=== PATIENT | female | born 1975 ===

== ENCOUNTER 2018-07-24 12:37 | Emergency (ER) | payer MEDICAID, OTHER ==
[2018-07-24 12:37] VITALS: BMI 29.2
[2018-07-24 12:53] VITALS: PULSE 87; RESP 18; TEMP 98.7; O2SAT 99
[2018-07-24 12:57] VITALS: BP 110/69
--- NOTE | 2018-07-24 15:09 | RAD ---
Date of service: 07/24/2018 HISTORY: cough COMPARISON: No prior. TECHNIQUE: Chest PA and lateral FINDINGS: LUNGS: No active pulmonary disease. PLEURA: No significant pleural effusion identified. No pneumothorax apparent. CARDIOVASCULAR: No aortic atherosclerotic calcification present OSSEOUS STRUCTURES: No significant abnormalities. VISUALIZED UPPER ABDOMEN: Normal. OTHER FINDINGS: None. IMPRESSION: No active disease.
--- NOTE | 2018-07-24 15:10 | C.PDOC ---
History Of Present Illness 42 year old female presents to the ER after having an episode of coughing with post tussive vomiting. Patient states they have been doing renovations in her apartment which has caused a bad smell to come from her bathroom and she believes it is due to mold. Patient reports she woke up with the symptoms due to the smell. Denies fever or chills. Time Seen by Provider: 07/24/18 12:53 Chief Complaint (Nursing): Cough, Cold, Congestion History Per: Patient History/Exam Limitations: no limitations Onset/Duration Of Symptoms: Hrs Current Symptoms Are (Timing): Gone Recent travel outside of the [place]: No Past Medical History Reviewed: Historical Data, Nursing Documentation, Vital Signs Vital Signs: Last Vital Signs Temp 98.7 F 07/24/18 12:42 Pulse 87 07/24/18 12:42 Resp 18 07/24/18 12:42 BP 110/69 07/24/18 12:56 Pulse Ox 99 07/24/18 12:42 Family History: States: Unknown Family Hx - Social History Hx Tobacco Use: Yes Hx Alcohol Use: Yes Hx Substance Use: No - Immunization History Hx Tetanus Toxoid Vaccination: No Hx Influenza Vaccination: No Hx Pneumococcal Vaccination: No Review Of Systems Constitutional: Negative for: Fever, Chills ENT: Negative for: Throat Pain Respiratory: Positive for: Cough Gastrointestinal: Positive for: Vomiting (Post tussive) Physical Exam - Physical Exam Appears: Non-toxic, No Acute Distress, Other (Speaking in complete sentences) Skin: Normal Color, Warm, Dry Head: Atraumatic, Normacephalic Eye(s): bilateral: Normal Inspection Ear(s): Bilateral: Normal Nose: Normal Oral Mucosa: Moist Throat: Normal, No Erythema, No Exudate Neck: Normal, Supple Chest: Symmetrical, No Tenderness Cardiovascular: Rhythm Regular Respiratory: Normal Breath Sounds, No Rales, No Rhonchi, No Wheezing Gastrointestinal/Abdominal: Soft, No Tenderness Neurological/Psych: Oriented x3, Normal Speech ED Course And Treatment O2 Sat by Pulse Oximetry: 99 (Room air) Pulse Ox Interpretation: Normal - Other Rad CXR X-Ray: Viewed By Me, Read By Radiologist Interpretation: HISTORY: cough. COMPARISON: No prior. TECHNIQUE: Chest PA and lateral. FINDINGS: LUNGS: No active pulmonary disease. PLEURA: No significant pleural effusion identified. No pneumothorax apparent. CARDIOVASCULAR: No aortic atherosclerotic calcification present. OSSEOUS STRUCTURES: No significant abnormalities. VISUALIZED UPPER ABDOMEN: Normal. OTHER FINDINGS: None. IMPRESSION: No active disease. Progress Note: CXR ordered, results were negative. Patient tolerated food while in the ER, she is resting comfortably in no acute distress, vitals are stable, will discharge home with instructions to follow up with PMD. Disposition - Disposition Disposition: HOME/ ROUTINE Disposition Time: 14:59 Condition: STABLE Additional Instructions: Follow up with your PMD within 1-2 days. Return to ED if feel worse. Prescriptions: Brompheniramine/Pseudoephed/Dm [Bromfed Dm Cough 118 ml] 10 ml PO Q4 #300 ml Ondansetron [Zofran Odt] 1 - 2 tab PO .Q4-6H PRN #20 odt PRN Reason: Nausea/Vomiting Instructions: Cough, Adult (DC) Forms: [employer] (Albanian) - Clinical Impression Clinical Impression: Cough - PA / CRANE MAN / Resident Statement MD/DO has reviewed & agrees with the documentation as recorded. - Scribe Statement The provider has reviewed the documentation as recorded by the Scribagustin Perera All medical record entries made by the Angelaibagustin were at my direction and personally dictated by me. I have reviewed the chart and agree that the record accurately reflects my personal performance of the history, physical exam, medical decision making, and the department course for this patient. I have also personally directed, reviewed, and agree with the discharge instructions and disposition.
== END 2018-07-24 15:22 | disposition home or self-care (01) ==
LOC: C.ER 12:37
DX: R05 Cough (principal)

== ENCOUNTER 2018-11-01 03:41 | Emergency (ER) | payer SELFPAY ==
[2018-11-01 03:55] VITALS: BMI 37.8
[2018-11-01 04:01] VITALS: BP 120/79; RESP 20; TEMP 98; O2SAT 97
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
[2018-11-01 04:47] VITALS: PULSE 82
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
== END 2018-11-01 04:44 | disposition home or self-care (01) ==
LOC: C.ER 03:41
DX: S90.32XA Contusion of left foot, initial encounter (principal); V09.20XA Pedestrian injured in traffic accident involving unspecified motor vehicles, initial encounter; Z72.0 Tobacco use